=== PATIENT | female | born 1955 | race Caucasian/White ===

== ENCOUNTER 2018-09-08 08:04 | Emergency (ER) | payer MEDICAID, MEDICARE ==
[~2018-09-08] VITALS: Ht 162.6 cm; Wt 127.3 kg
[~2018-09-08 08:04] MED LIST: ALBU18HF2 INH; AMIT50TA14 PO; BROM2.5T22 PO; CYA500T PO; DICY10CA88 PO; DOCU100C40 PO; GABA-530 PO; MESA0.37 PO; SUMA6VIA SQ
[2018-09-08] MEDS ORDERED: albuterol 2.5 MG/3 ML nebule NEB ONE (08:30)
[2018-09-08 08:52] LABS: BASOPHILS # (AUTO) 0.1 X10'3 (0-0.2); BASOPHILS % (AUTO) 0.9 % (0-1); EOSINOPHILS # (AUTO) 0.2 X10'3 (0-0.9); HEMATOCRIT 37.6 % (35.0-45.0); HEMOGLOBIN 12.1 g/dl (12.0-16.0); LYMPHOCYTES # (AUTO) 1.1 X10'3 (1.1-4.8); MEAN CORPUSCULAR HEMOGLOBIN 28.6 PG (27.0-31.0); MEAN CORPUSCULAR HGB CONC 32.1 % (33.0-36.5); MEAN PLATELET VOLUME 8.2 FL (7.4-10.4); MONOCYTES # (AUTO) 0.9 X10'3 (0-0.9); MONOCYTES % (AUTO) 15.7 % (2-12); NEUTROPHILS # (AUTO) 3.7 X10'3 (1.8-7.7); NEUTROPHILS % (AUTO) 62.4 % (42-75); PLATELET COUNT 328 X10'3 (140-440); RED BLOOD COUNT 4.23 X10'6 (4.20-5.60); RED CELL DISTRIBUTION WIDTH 16.1 % (11.5-14.5); WHITE BLOOD COUNT 5.9 X10'3 (4.5-11.0)
[2018-09-08] MEDS ORDERED: predniSONE 20 mg tablet PO ONE (09:00)
[2018-09-08] MEDS ORDERED: levoFLOXACIN 750MG TABLET PO ONE (09:00)
[2018-09-08 09:08] LABS: PARTIAL THROMBOPLASTIN TIME 26 SECONDS (22-32); PROTHROMBIN TIME 10.1 SECONDS (9.0-12.0)
[2018-09-08] MEDS ORDERED: ALBU18HF2 INH (09:10)
[2018-09-08] MEDS ORDERED: PRED20TA PO (09:10)
[2018-09-08] MEDS ORDERED: LEVO750T21 PO (09:10)
[2018-09-08 09:19] LABS: ALANINE AMINOTRANSFERASE 20 U/L (12-78); ALBUMIN 3.5 G/DL (3.4-5.0); ALBUMIN/GLOBULIN RATIO 0.9 (1.1-1.5); ALKALINE PHOSPHATASE 123 IU/L (46-116); ANION GAP 12 (8-16); ASPARTATE AMINO TRANSFERASE 15 U/L (10-37); BILIRUBIN,TOTAL 0.3 MG/DL (0.1-1.0); BLOOD UREA NITROGEN 13 MG/DL (7-18); CALCIUM 9.4 MG/DL (8.5-10.1); CHLORIDE 104 MMOL/L (99-107); CREATININE 0.81 MG/DL (0.40-0.90); GLUCOSE 94 MG/DL (70-104); POTASSIUM 3.8 MMOL/L (3.5-5.1); SODIUM 140 MMOL/L (135-145); TOTAL CARBON DIOXIDE 24.2 MMOL/L (24-32); TOTAL PROTEIN 7.2 G/DL (6.4-8.2); eGFR 71 ML/MIN
[2018-09-08] MEDS ORDERED: ALBU2.5V12 NEB (09:22)
[2018-09-08] MEDS ORDERED: COMP1EAC87 INH (09:22)
[2018-09-08 09:31] VITALS: BP 145/99
== END 2018-09-08 09:36 | disposition home or self-care (01) ==
LOC: ER 08:04
DX: J20.9 Acute bronchitis, unspecified (principal); J45.909 Unspecified asthma, uncomplicated; M19.90 Unspecified osteoarthritis, unspecified site; Z90.89 Acquired absence of other organs; Z98.51 Tubal ligation status; Z88.2 Allergy status to sulfonamides; Z88.5 Allergy status to narcotic agent; Z88.8 Allergy status to other drugs, medicaments and biological substances; Z79.899 Other long term (current) drug therapy; Z87.891 Personal history of nicotine dependence
CPT/HCPCS: 36415; 71045; 80053; 83880; 84484; 85025; 85610; 85730; 93005; 94640; 94760; 99284; J7512

== ENCOUNTER 2020-05-04 17:47 | Emergency (ER) | payer MEDICARE, OTHER ==
[~2020-05-04] VITALS: Ht 162.6 cm; Wt 127.3 kg
[~2020-05-04 17:47] MED LIST changes: +ALBU2.5V12 NEB; -BROM2.5T22 PO; +BROM2.5T5 PO; +COMP1EAC87 INH; -CYA500T PO; +CYAN500T63 PO
[2020-05-04 18:58] LABS: BASOPHILS % (AUTO) 0.5 % (0-1); EOSINOPHILS % (AUTO) 0.1 % (0-6); HEMATOCRIT 41.4 % (35.0-45.0); HEMOGLOBIN 13.6 g/dl (12.0-16.0); LYMPHOCYTES # (AUTO) 1.1 X10'3 (1.1-4.8); LYMPHOCYTES % (AUTO) 12.3 % (21-51); MEAN CORPUSCULAR HEMOGLOBIN 30.2 PG (27.0-31.0); MEAN CORPUSCULAR VOLUME 91.4 FL (78-98); MEAN PLATELET VOLUME 8.6 FL (7.4-10.4); MONOCYTES % (AUTO) 10.4 % (2-12); NEUTROPHILS # (AUTO) 7.1 X10'3 (1.8-7.7); NEUTROPHILS % (AUTO) 76.7 % (42-75); PLATELET COUNT 305 X10'3 (140-440); RED BLOOD COUNT 4.52 X10'6 (4.20-5.60); RED CELL DISTRIBUTION WIDTH 15.1 % (11.5-14.5); WHITE BLOOD COUNT 9.3 X10'3 (4.5-11.0)
[2020-05-04 19:10] LABS: ALANINE AMINOTRANSFERASE 29 U/L (12-78); ALBUMIN 3.9 G/DL (3.4-5.0); ALKALINE PHOSPHATASE 103 IU/L (46-116); ANION GAP 14 (8-16); ASPARTATE AMINO TRANSFERASE 20 U/L (10-37); BILIRUBIN,TOTAL 0.4 MG/DL (0.1-1.0); BLOOD UREA NITROGEN 19 MG/DL (7-18); CALCIUM 9.9 MG/DL (8.5-10.1); CHLORIDE 102 MMOL/L (99-107); GLUCOSE 119 MG/DL (70-104); POTASSIUM 4.4 MMOL/L (3.5-5.1); SODIUM 136 MMOL/L (135-145); TOTAL CARBON DIOXIDE 20.2 MMOL/L (24-32); eGFR 56 ML/MIN
[2020-05-04 19:13] LABS: TROPONIN I < 0.04 NG/ML (0.0-0.05)
[2020-05-04] MEDS ORDERED: normal saline 1000ML IV soln IVB ONE (19:15)
[2020-05-04] MEDS ORDERED: ondansetron/PF 4mg/2ml inj IV ONE (19:35)
[2020-05-04 19:41] LABS: MAGNESIUM 2.1 MG/DL (1.5-2.4)
[2020-05-04 19:42] LABS: CLARITY,URINE CLEAR (Clear); COLOR,URINE YELLOW (Yellow); GLUCOSE, URINE NEGATIVE (Neg); KETONES,URINE >=80 mg/dl (Neg); LEUKOCYTE ESTERASE ,URINE NEGATIVE (Neg); NITRITES, URINE NEGATIVE (Neg); OCCULT BLOOD,URINE NEGATIVE (Neg); PROTEIN,URINE NEGATIVE (Neg); UROBILINOGEN,URINE 0.2 E.U/dL (0.2-1.0)
[2020-05-04 19:46] LABS: UA COLLECTION TYPE URINAL
[2020-05-04] MEDS ORDERED: methylPREDNISolone sod succ 125mg/2ml vial IV ONE (20:50)
[2020-05-04] MEDS ORDERED: LORazepam 0.5 MG tablet PO STA (20:52)
[2020-05-04] MEDS ORDERED: LORazepam 2 mg/ml vial IV ONE (21:40)
--- NOTE | 2020-05-04 21:52 | NUR ---
pt is resting quietly on gurney, still c/o nausea, dry heaving, medicated per Nile escalante at bedside to evaluate pt
[2020-05-04] MEDS ORDERED: iohexol 350MG/ML 100ml bottle IV ONE (22:09)
[2020-05-04] MEDS ORDERED: morphine 10mg/ml inj. IV ONE (22:20)
[2020-05-04] MEDS ORDERED: proCHLORperazine 10 MG/2 ml inj IV ONE (22:20)
[2020-05-05] MEDS ORDERED: LORA-268 PO (00:30)
[2020-05-05 00:58] VITALS: BP 128/72
== END 2020-05-05 01:00 | disposition home or self-care (01) ==
LOC: ER 17:48
DX: R53.1 Weakness (principal); R06.02 Shortness of breath; R53.83 Other fatigue; J45.909 Unspecified asthma, uncomplicated; Z98.51 Tubal ligation status; Z90.89 Acquired absence of other organs; Z98.890 Other specified postprocedural states; Z88.6 Allergy status to analgesic agent; Z88.2 Allergy status to sulfonamides; Z88.5 Allergy status to narcotic agent; Z88.8 Allergy status to other drugs, medicaments and biological substances; Z79.899 Other long term (current) drug therapy
CPT/HCPCS: 36415; 71045; 71275; 80053; 81003; 82948; 83735; 83880; 84100; 84443; 84484; 85025; 85379; 93005; 96361; 96374; 96375; 99285; J0780; J2060; J2270; J2405; J2930; J7030; Q9967

== ENCOUNTER 2021-09-14 13:58 | Emergency (ER) | payer MEDICARE, OTHER ==
[~2021-09-14] VITALS: Ht 167.6 cm; Wt 104.5 kg
[~2021-09-14 13:58] MED LIST changes: -CYAN500T63 PO; +CYAN500T71 PO; +LORA-268 PO
[2021-09-14] MEDS ORDERED: normal saline 1000ML IV soln IVB ONE (14:05)
[2021-09-14] MEDS ORDERED: ondansetron/PF 4mg/2ml inj IV ONE ×2 (14:05→16:50)
[2021-09-14] MEDS ORDERED: acetaminophen 1,000mg/100ml IV 100 ML IV ONE (14:10)
[2021-09-14 14:35] LABS: BASOPHILS # (AUTO) 0.1 X10'3 (0-0.2); BASOPHILS % (AUTO) 0.5 % (0-1); EOSINOPHILS % (AUTO) 0.1 % (0-6); HEMATOCRIT 36.7 % (35.0-45.0); HEMOGLOBIN 12.2 g/dl (12.0-16.0); LYMPHOCYTES # (AUTO) 1.3 X10'3 (1.1-4.8); LYMPHOCYTES % (AUTO) 6.7 % (21-51); MEAN CORPUSCULAR HGB CONC 33.2 g/dL (33.0-36.5); MEAN CORPUSCULAR VOLUME 90.5 FL (78-98); MEAN PLATELET VOLUME 8.5 FL (7.4-10.4); MONOCYTES % (AUTO) 10.4 % (2-12); NEUTROPHILS # (AUTO) 15.8 X10'3 (1.8-7.7); NEUTROPHILS % (AUTO) 82.3 % (42-75); PLATELET COUNT 476 X10'3 (140-440); RED BLOOD COUNT 4.05 X10'6 (4.20-5.60); RED CELL DISTRIBUTION WIDTH 14.3 % (11.5-14.5); WHITE BLOOD COUNT 19.2 X10'3 (4.5-11.0)
[2021-09-14 14:47] LABS: ALANINE AMINOTRANSFERASE 14 U/L (12-78); ALBUMIN/GLOBULIN RATIO 0.6 (1.1-1.5); ALKALINE PHOSPHATASE 208 IU/L (46-116); ANION GAP 18 (8-16); ASPARTATE AMINO TRANSFERASE 13 U/L (10-37); BILIRUBIN,TOTAL 0.9 MG/DL (0.1-1.0); BLOOD UREA NITROGEN 9 MG/DL (7-18); BUN/CREATININE RATIO 12.2 (6.6-38.0); CALCIUM 9.8 MG/DL (8.5-10.1); CHLORIDE 99 MMOL/L (99-107); CREATININE 0.74 MG/DL (0.40-0.90); GLUCOSE 110 MG/DL (70-104); POTASSIUM 3.6 MMOL/L (3.5-5.1); SODIUM 137 MMOL/L (135-145); TOTAL CARBON DIOXIDE 20.3 MMOL/L (24-32); eGFR 78 ML/MIN
[2021-09-14 14:52] LABS: LIPASE 81 U/L (73-393)
[2021-09-14] MEDS ORDERED: iohexol 300mg/ml 100ml inj. ONE (15:25)
--- NOTE | 2021-09-14 16:23 | NUR ---
bandar [phone]
[2021-09-14] MEDS ORDERED: ONDA4TAB6 PO (16:50)
[2021-09-14] MEDS ORDERED: PROC25SU31 RC (16:50)
[2021-09-14 17:04] LABS: CLARITY,URINE CLEAR (Clear); COLOR,URINE YELLOW (Yellow); GLUCOSE, URINE NEGATIVE (Neg); KETONES,URINE >=80 mg/dl (Neg); LEUKOCYTE ESTERASE ,URINE NEGATIVE (Neg); NITRITES, URINE NEGATIVE (Neg); OCCULT BLOOD,URINE NEGATIVE (Neg); PROTEIN,URINE NEGATIVE (Neg); UROBILINOGEN,URINE 0.2 E.U/dL (0.2-1.0)
[2021-09-14 17:10] LABS: UA COLLECTION TYPE CLN CATCH MIDSTREAM
[2021-09-14 18:34] VITALS: BP 140/78
== END 2021-09-14 18:36 | disposition home or self-care (01) ==
LOC: ER 13:58
DX: R10.13 Epigastric pain (principal); E27.9 Disorder of adrenal gland, unspecified; D72.829 Elevated white blood cell count, unspecified; J45.909 Unspecified asthma, uncomplicated; Z87.01 Personal history of pneumonia (recurrent); Z98.51 Tubal ligation status; Z98.890 Other specified postprocedural states; Z88.8 Allergy status to other drugs, medicaments and biological substances; Z88.5 Allergy status to narcotic agent; Z88.2 Allergy status to sulfonamides; Z79.899 Other long term (current) drug therapy
CPT/HCPCS: 36415; 74177; 80053; 81003; 83605; 83690; 84484; 85025; 87040; 96361; 96374; 96375; 96376; 99285; J0131; J2405; J7030; Q9967

== ENCOUNTER 2021-11-01 14:20 | Inpatient (IN) | payer MEDICARE, OTHER ==
[~2021-11-01] VITALS: Ht 167.6 cm; Wt 98.2 kg
[~2021-11-01 14:20] MED LIST changes: +ONDA4TAB6 PO
[2021-11-01] MEDS ORDERED: fentaNYL/PF 50MCG/1 ML 2ML syringe IV ONE (14:40)
[2021-11-01] MEDS ORDERED: normal saline 1000ML IV soln IVB ONE (14:40)
[2021-11-01] MEDS ORDERED: ondansetron/PF 4mg/2ml inj IV ONE (14:40)
[2021-11-01 15:23] LABS: BASOPHILS # (AUTO) 0.1 X10'3 (0-0.2); BASOPHILS % (AUTO) 0.6 % (0-1); EOSINOPHILS % (AUTO) 0.2 % (0-6); HEMATOCRIT 32.2 % (35.0-45.0); HEMOGLOBIN 10.6 g/dl (12.0-16.0); LYMPHOCYTES # (AUTO) 1.4 X10'3 (1.1-4.8); LYMPHOCYTES % (AUTO) 5.6 % (21-51); MEAN CORPUSCULAR HEMOGLOBIN 28.5 PG (27.0-31.0); MEAN CORPUSCULAR VOLUME 86.3 FL (78-98); MONOCYTES # (AUTO) 2.7 X10'3 (0-0.9); MONOCYTES % (AUTO) 10.9 % (2-12); NEUTROPHILS # (AUTO) 20.4 X10'3 (1.8-7.7); NEUTROPHILS % (AUTO) 82.7 % (42-75); PLATELET COUNT 488 X10'3 (140-440); RED BLOOD COUNT 3.73 X10'6 (4.20-5.60); RED CELL DISTRIBUTION WIDTH 15.4 % (11.5-14.5); WHITE BLOOD COUNT 24.7 X10'3 (4.5-11.0)
[2021-11-01 15:43] LABS: BANDS% (MANUAL) 0.5 % (0-10); NEUTROPHILS % (MANUAL) 87.5 % (42-75); PLATELET ESTIMATE INCREASED; TOTAL CELLS COUNTED 200
[2021-11-01 15:48] LABS: ALANINE AMINOTRANSFERASE 18 U/L (12-78); ALBUMIN 2.3 G/DL (3.4-5.0); ALBUMIN/GLOBULIN RATIO 0.4 (1.1-1.5); ALKALINE PHOSPHATASE 287 IU/L (46-116); ANION GAP 14 (8-16); ASPARTATE AMINO TRANSFERASE 19 U/L (10-37); BILIRUBIN,TOTAL 0.6 MG/DL (0.1-1.0); BLOOD UREA NITROGEN 23 MG/DL (7-18); BUN/CREATININE RATIO 26.4 (6.6-38.0); CALCIUM 10.2 MG/DL (8.5-10.1); CHLORIDE 99 MMOL/L (99-107); CREATININE 0.87 MG/DL (0.40-0.90); GLUCOSE 122 MG/DL (70-104); LIPASE 68 U/L (73-393); POTASSIUM 3.3 MMOL/L (3.5-5.1); SODIUM 135 MMOL/L (135-145); TOTAL CARBON DIOXIDE 22.3 MMOL/L (24-32); TOTAL PROTEIN 7.8 G/DL (6.4-8.2); eGFR 65 ML/MIN
[2021-11-01 16:46] LABS: CLARITY,URINE SLIGHTLY CLOUDY (Clear); COLOR,URINE YELLOW (Yellow); GLUCOSE, URINE NEGATIVE (Neg); KETONES,URINE 15 mg/dl (Neg); LEUKOCYTE ESTERASE ,URINE NEGATIVE (Neg); NITRITES, URINE NEGATIVE (Neg); OCCULT BLOOD,URINE NEGATIVE (Neg); PROTEIN,URINE NEGATIVE (Neg); UROBILINOGEN,URINE 0.2 E.U/dL (0.2-1.0)
[2021-11-01 16:49] LABS: UA COLLECTION TYPE CLN CATCH MIDSTREAM
[2021-11-01 16:52] LABS: BACTERIA,URINE 1+ /HPF (Neg); CELLULAR CAST 0-4 /LPF (NEGATIVE); MUCUS STRANDS MODERATE /LPF (Neg); RBC,URINE 0-2 /HPF (0-2); SQUAMOUS EPITHELIAL CELL,UR MODERATE /LPF (FEW); WBC,URINE 0-4 /HPF (0-4)
[2021-11-01 16:53] LABS: HYALINE CASTS 0-3 /LPF (NEGATIVE)
[2021-11-01] MEDS: diatr meglu/diatrizoate 30ml oral sol.-(3 dose) bottle PO SCH ×3 (17:30→19:05)
[2021-11-01] MEDS: fentaNYL/PF 50MCG/1 ML 2ML syringe IV PRN ×3 (18:54→23:44)
[2021-11-01] MEDS ORDERED: iohexol 300mg/ml 100ml inj. ONE (19:00)
--- NOTE | 2021-11-01 19:56 | NUR ---
PT UP TO BEDSIDE COMMODE WITH MIN. ASSIST
[2021-11-01] MEDS ORDERED: vancomycin/NS 1 GM ADD-VANTAGE 250 ML IV ONE (20:00)
[2021-11-01] MEDS ORDERED: piperacillin/tazo 3.375gm/50ml 50 ML IV ONE (20:00)
[2021-11-01] MEDS ORDERED: acetaminophen 325mg tablet PO PRN (20:50)
[2021-11-01] MEDS ORDERED: magnesium 4gm in 100ml NS 100 ML IV PRN (20:50)
[2021-11-01] MEDS ORDERED: mag hydrox/Alum hydrox/simeth 30ml oral suspension PO PRN (20:50)
[2021-11-01] MEDS ORDERED: diphenhydrAMINE 50 mg/ml inj IV PRN (20:50)
[2021-11-01] MEDS ORDERED: diphenhydrAMINE 25mg capsule PO PRN (20:50)
[2021-11-01] MEDS ORDERED: magnesium 2GM in 50ml NS 50 ML IV PRN (20:50)
[2021-11-01] MEDS ORDERED: bisacodyl 10mg suppository rectal RC PRN (20:50)
[2021-11-01] MEDS ORDERED: potassium Cl 20 mEq SR tablet PO PRN ×2 (20:50)
[2021-11-01] MEDS ORDERED: normal saline 1000ML IV soln IV ONE (20:50)
[2021-11-01] MEDS ORDERED: acetaminophen 650mg rectal suppository RC PRN (20:50)
[2021-11-01] MEDS ORDERED: potassium CL 10mEq/100ml bag 100 ML IV PRN (20:50)
[2021-11-01] MEDS ORDERED: magnesium hydroxide 30ml (MOM) UD suspension PO PRN (20:50)
[2021-11-01] MEDS ORDERED: magnesium Cl slow-release 64mg tablet PO PRN (20:50)
[2021-11-01] MEDS ORDERED: ondansetron 4mg rapidly disintigrating tab PO PRN (20:50)
[2021-11-01] MEDS ORDERED: temazepam 15mg capsule PO PRN (21:00)
[2021-11-01 22:06] LABS: APTT 29 SECONDS (22-32)
[2021-11-01 22:09] LABS: HEMOGLOBIN A1C 5.5 % (4.5-6.2)
[2021-11-01 22:16] LABS: MAGNESIUM 1.7 MG/DL (1.5-2.4); PHOSPHORUS 2.5 MG/DL (2.3-4.5); POTASSIUM 3.3 MMOL/L (3.5-5.1)
[2021-11-02] VITALS (9 sets, daily range): BP systolic 120–140; BP diastolic 64–95
[2021-11-02 01:43] LABS: BASOPHILS # (AUTO) 0.1 X10'3 (0-0.2); BASOPHILS % (AUTO) 0.6 % (0-1); EOSINOPHILS % (AUTO) 0.2 % (0-6); HEMATOCRIT 27.2 % (35.0-45.0); HEMOGLOBIN 8.9 g/dl (12.0-16.0); LYMPHOCYTES # (AUTO) 1.7 X10'3 (1.1-4.8); LYMPHOCYTES % (AUTO) 10.3 % (21-51); MEAN CORPUSCULAR HEMOGLOBIN 28.3 PG (27.0-31.0); MEAN CORPUSCULAR HGB CONC 32.7 g/dL (33.0-36.5); MEAN CORPUSCULAR VOLUME 86.6 FL (78-98); MEAN PLATELET VOLUME 9.2 FL (7.4-10.4); MONOCYTES # (AUTO) 2.4 X10'3 (0-0.9); MONOCYTES % (AUTO) 13.9 % (2-12); NEUTROPHILS # (AUTO) 12.8 X10'3 (1.8-7.7); PLATELET COUNT 396 X10'3 (140-440); RED BLOOD COUNT 3.14 X10'6 (4.20-5.60); RED CELL DISTRIBUTION WIDTH 15.1 % (11.5-14.5)
[2021-11-02 02:01] LABS: ALANINE AMINOTRANSFERASE 12 U/L (12-78); ALBUMIN 1.7 G/DL (3.4-5.0); ALBUMIN/GLOBULIN RATIO 0.4 (1.1-1.5); ALKALINE PHOSPHATASE 213 IU/L (46-116); ANION GAP 10 (8-16); ASPARTATE AMINO TRANSFERASE 12 U/L (10-37); BILIRUBIN,TOTAL 0.4 MG/DL (0.1-1.0); BLOOD UREA NITROGEN 16 MG/DL (7-18); BUN/CREATININE RATIO 25.8 (6.6-38.0); CALCIUM 8.7 MG/DL (8.5-10.1); CHLORIDE 105 MMOL/L (99-107); CHOL/HDL RATIO 3.6 (0.00-4.99); CHOLESTEROL 124 MG/DL (0-200); CREATININE 0.62 MG/DL (0.40-0.90); GLUCOSE 105 MG/DL (70-104); HDL CHOLESTEROL 34 MG/DL (35-60); LDL CHOLESTEROL 70 MG/DL (50-100); MAGNESIUM 1.6 MG/DL (1.5-2.4); POTASSIUM 3.3 MMOL/L (3.5-5.1); SODIUM 136 MMOL/L (135-145); TOTAL PROTEIN 5.8 G/DL (6.4-8.2); TRIGLYCERIDES 41 MG/DL (20-135); eGFR > 90 ML/MIN
[2021-11-02] MEDS: potassium Cl 20mEq in NS 1,000 ML IV SCH ×3 (02:24→13:59)
[2021-11-02 04:06] LABS: TOTAL CELLS COUNTED 100
[2021-11-02 04:08] LABS: PLATELET ESTIMATE NORMAL
[2021-11-02] MEDS ORDERED: SUCR1TAB PO (04:45)
[2021-11-02] MEDS ORDERED: AMIT-189 PO (04:45)
[2021-11-02] MEDS ORDERED: OMEP20CA16 PO (04:45)
[2021-11-02] MEDS ORDERED: ONDA-103 PO (04:45)
[2021-11-02] MEDS ORDERED: DENO60DI SQ (04:45)
[2021-11-02] MEDS ORDERED: FAMO20TA8 PO (04:45)
[2021-11-02] MEDS ORDERED: IBUP-1986 PO (04:45)
[2021-11-02] MEDS ORDERED: CHOL400T57 PO (05:11)
[2021-11-02] MEDS ORDERED: ZINC50TA67 PO (05:11)
[2021-11-02] MEDS ORDERED: CALC250T2 PO (05:11)
[2021-11-02] MEDS ORDERED: ELDE1CAP PO (05:11)
[2021-11-02] MEDS: fentaNYL/PF 50MCG/1 ML 2ML syringe IV PRN ×2 (05:59→22:22)
[2021-11-02] MEDS: piperacillin/tazo 3.375gm/50ml 50 ML IV SCH ×3 (06:09→22:33)
[2021-11-02] MEDS: ondansetron/PF 4mg/2ml inj IV PRN ×2 (06:13→20:25)
[2021-11-02] MEDS ORDERED: SUMAtriptan succ. 6 MG/0.5ml vial SQ PRN (06:35)
[2021-11-02] MEDS: docusate sod 100mg capsule PO SCH ×2 (08:00→20:00)
[2021-11-02] MEDS: MESALAMINE 0.375 GM PO SCH (08:00)
[2021-11-02] MEDS ORDERED: VANCOMYCIN 1GM/200ML IVPB 200 ML IV SCH (08:00)
[2021-11-02] MEDS ORDERED: non-formulary drug (Omeprazole 1 CAP) PO SCH (08:00)
--- NOTE | 2021-11-02 08:38 | NUR ---
PT TO [facility].
--- NOTE | 2021-11-02 08:44 | NUR ---
PARLODEL AND VANCOMYCIN NOT AVAILABLE IN THE [facility],CALLED RODY SPOKE TO JUANITA.
[2021-11-02] MEDS: pantoprazole 40MG/NS 100ML BAG 100 ML IV SCH (08:50)
--- NOTE | 2021-11-02 10:16 | NUR ---
ADMITTING DR SINGH FOR ANXIETY MED ORDERS WELL IMMODIUM.
[2021-11-02] MEDS ORDERED: FENTANYL CITRATE/PF 50 MCG/1 ML VIAL IV PRN (14:41)
[2021-11-02] MEDS ORDERED: fentaNYL/PF 50MCG/1 ML 2ML syringe ONE ×2 (15:08→15:34)
[2021-11-02] MEDS ORDERED: midazolam 1 mg/ML 2ml injection ONE ×2 (15:08→15:34)
--- NOTE | 2021-11-02 16:20 | NUR ---
Patient back from Angio lab with SHYANNE drain at left side , alert and orient.
[2021-11-02] MEDS ORDERED: HYDR-3965 PO (17:21)
[2021-11-02] MEDS: gabapentin 100mg capsule PO SCH ×2 (20:00→21:00)
[2021-11-02] MEDS: vancomycin/NS 1 GM ADD-VANTAGE 200 ML IV SCH (20:00)
[2021-11-02] MEDS: K and/or MAG REPLACEMENT MC SCH ×2 (20:00→21:00)
[2021-11-02] MEDS: amitriptyline 50mg tablet PO SCH (20:25)
--- NOTE | 2021-11-02 20:38 | NUR ---
pt complaining of pain and nausea. Zofran given. night time medications attempted unable to tolerate due to nausea and feelings of having to vomit. patient clear liquid diet. will continue to monitor.
[2021-11-03] MEDS: potassium Cl 20mEq in NS 1,000 ML IV SCH ×2 (00:47→12:38)
[2021-11-03 02:00] VITALS: BP 124/59
[2021-11-03] MEDS: ondansetron/PF 4mg/2ml inj IV PRN (05:43)
[2021-11-03] MEDS: fentaNYL/PF 50MCG/1 ML 2ML syringe IV PRN ×2 (05:43→15:42)
[2021-11-03 06:00] VITALS: BP 115/69
[2021-11-03] MEDS ORDERED: VANCOMYCIN LEVEL IV ONE (07:30)
[2021-11-03] MEDS: MESALAMINE 0.375 GM PO SCH (08:00)
[2021-11-03] MEDS: K and/or MAG REPLACEMENT MC SCH ×2 (08:00→20:00)
[2021-11-03 08:09] LABS: BASOPHILS % (AUTO) 0.5 % (0-1); EOSINOPHILS # (AUTO) 0.2 X10'3 (0-0.9); EOSINOPHILS % (AUTO) 2.5 % (0-6); HEMATOCRIT 27.9 % (35.0-45.0); HEMOGLOBIN 8.9 g/dl (12.0-16.0); LYMPHOCYTES # (AUTO) 1.5 X10'3 (1.1-4.8); LYMPHOCYTES % (AUTO) 18.9 % (21-51); MEAN CORPUSCULAR HEMOGLOBIN 28.1 PG (27.0-31.0); MEAN CORPUSCULAR HGB CONC 31.8 g/dL (33.0-36.5); MEAN CORPUSCULAR VOLUME 88.4 FL (78-98); MEAN PLATELET VOLUME 8.4 FL (7.4-10.4); MONOCYTES # (AUTO) 1.1 X10'3 (0-0.9); MONOCYTES % (AUTO) 13.8 % (2-12); NEUTROPHILS # (AUTO) 5.1 X10'3 (1.8-7.7); NEUTROPHILS % (AUTO) 64.3 % (42-75); PLATELET COUNT 406 X10'3 (140-440); RED BLOOD COUNT 3.16 X10'6 (4.20-5.60); RED CELL DISTRIBUTION WIDTH 15.4 % (11.5-14.5)
[2021-11-03 08:34] LABS: ALANINE AMINOTRANSFERASE 13 U/L (12-78); ALBUMIN 1.8 G/DL (3.4-5.0); ALBUMIN/GLOBULIN RATIO 0.5 (1.1-1.5); ALKALINE PHOSPHATASE 178 IU/L (46-116); ANION GAP 9 (8-16); ASPARTATE AMINO TRANSFERASE 11 U/L (10-37); BILIRUBIN,TOTAL 0.2 MG/DL (0.1-1.0); BLOOD UREA NITROGEN 9 MG/DL (7-18); BUN/CREATININE RATIO 20.9 (6.6-38.0); CALCIUM 8.8 MG/DL (8.5-10.1); CHLORIDE 111 MMOL/L (99-107); CREATININE 0.43 MG/DL (0.40-0.90); GLUCOSE 88 MG/DL (70-104); MAGNESIUM 1.7 MG/DL (1.5-2.4); POTASSIUM 4.4 MMOL/L (3.5-5.1); SODIUM 142 MMOL/L (135-145); TOTAL CARBON DIOXIDE 21.6 MMOL/L (24-32); TOTAL PROTEIN 5.3 G/DL (6.4-8.2); VANCOMYCIN,TROUGH 12.8 UG/ML (6.0-14.0); eGFR > 90 ML/MIN
[2021-11-03] MEDS: docusate sod 100mg capsule PO SCH ×2 (09:16→20:32)
[2021-11-03] MEDS: gabapentin 100mg capsule PO SCH ×2 (09:16→20:32)
[2021-11-03] MEDS: pantoprazole 40MG/NS 100ML BAG 100 ML IV SCH (09:17)
[2021-11-03] MEDS: vancomycin/NS 1 GM ADD-VANTAGE 200 ML IV SCH (10:06)
[2021-11-03 11:00] VITALS: BP 97/56
[2021-11-03] MEDS: piperacillin/tazo 3.375gm/50ml 50 ML IV SCH ×3 (12:39→21:50)
[2021-11-03 15:00] VITALS: BP 110/89
[2021-11-03 18:00] VITALS: BP 124/70
[2021-11-03] MEDS: amitriptyline 50mg tablet PO SCH (20:32)
[2021-11-03] MEDS: VANCOmycin 1250MG/NS 250ml Bag 250 ML IV SCH (21:43)
[2021-11-04] MEDS: potassium Cl 20mEq in NS 1,000 ML IV SCH ×3 (01:41→18:50)
[2021-11-04 02:00] VITALS: BP 102/59
[2021-11-04 06:00] VITALS: BP 122/61
[2021-11-04] MEDS: piperacillin/tazo 3.375gm/50ml 50 ML IV SCH ×3 (06:32→20:29)
[2021-11-04 07:01] LABS: BASOPHILS % (AUTO) 0.6 % (0-1); EOSINOPHILS # (AUTO) 0.3 X10'3 (0-0.9); EOSINOPHILS % (AUTO) 5.1 % (0-6); HEMATOCRIT 27.1 % (35.0-45.0); HEMOGLOBIN 8.5 g/dl (12.0-16.0); LYMPHOCYTES # (AUTO) 1.7 X10'3 (1.1-4.8); LYMPHOCYTES % (AUTO) 27.8 % (21-51); MEAN CORPUSCULAR HEMOGLOBIN 27.7 PG (27.0-31.0); MEAN CORPUSCULAR HGB CONC 31.4 g/dL (33.0-36.5); MEAN CORPUSCULAR VOLUME 88.1 FL (78-98); MEAN PLATELET VOLUME 8.6 FL (7.4-10.4); MONOCYTES # (AUTO) 0.8 X10'3 (0-0.9); MONOCYTES % (AUTO) 12.6 % (2-12); NEUTROPHILS # (AUTO) 3.3 X10'3 (1.8-7.7); NEUTROPHILS % (AUTO) 53.9 % (42-75); PLATELET COUNT 403 X10'3 (140-440); RED BLOOD COUNT 3.07 X10'6 (4.20-5.60); RED CELL DISTRIBUTION WIDTH 15.3 % (11.5-14.5); WHITE BLOOD COUNT 6.1 X10'3 (4.5-11.0)
[2021-11-04 07:17] LABS: ALANINE AMINOTRANSFERASE 12 U/L (12-78); ALBUMIN/GLOBULIN RATIO 0.6 (1.1-1.5); ALKALINE PHOSPHATASE 153 IU/L (46-116); ANION GAP 8 (8-16); ASPARTATE AMINO TRANSFERASE 8 U/L (10-37); BILIRUBIN,TOTAL 0.3 MG/DL (0.1-1.0); BLOOD UREA NITROGEN 6 MG/DL (7-18); BUN/CREATININE RATIO 9.7 (6.6-38.0); CHLORIDE 111 MMOL/L (99-107); CREATININE 0.62 MG/DL (0.40-0.90); GLUCOSE 83 MG/DL (70-104); MAGNESIUM 1.7 MG/DL (1.5-2.4); POTASSIUM 4.8 MMOL/L (3.5-5.1); SODIUM 143 MMOL/L (135-145); TOTAL CARBON DIOXIDE 23.8 MMOL/L (24-32); TOTAL PROTEIN 5.3 G/DL (6.4-8.2); eGFR > 90 ML/MIN
[2021-11-04] MEDS: MESALAMINE 0.375 GM PO SCH (08:00)
[2021-11-04] MEDS: pantoprazole 40MG/NS 100ML BAG 100 ML IV SCH (08:00)
[2021-11-04] MEDS: VANCOmycin 1250MG/NS 250ml Bag 250 ML IV SCH ×2 (08:00→20:18)
[2021-11-04] MEDS: docusate sod 100mg capsule PO SCH ×2 (08:00→20:17)
[2021-11-04] MEDS: K and/or MAG REPLACEMENT MC SCH ×2 (08:00→20:00)
[2021-11-04] MEDS: gabapentin 100mg capsule PO SCH ×2 (08:15→20:17)
--- NOTE | 2021-11-04 09:07 | NUR ---
Verbal order from Dr. Recinos to place patient on regular diet for primary nurse Soha Rodas RN Resource nurse.
[2021-11-04 11:00] VITALS: BP 120/72
[2021-11-04] MEDS: traMADol 50MG tablet PO PRN ×2 (12:45→17:35)
[2021-11-04 15:00] VITALS: BP 113/56
[2021-11-04 18:00] VITALS: BP 91/61
[2021-11-04] MEDS: amitriptyline 50mg tablet PO SCH (20:17)
[2021-11-04] MEDS: acetaminophen 325mg tablet PO PRN (20:23)
[2021-11-05] MEDS: potassium Cl 20mEq in NS 1,000 ML IV SCH ×2 (02:21→15:06)
[2021-11-05] MEDS: piperacillin/tazo 3.375gm/50ml 50 ML IV SCH ×3 (05:36→21:21)
[2021-11-05] MEDS: traMADol 50MG tablet PO PRN ×3 (05:41→18:17)
[2021-11-05 06:00] VITALS: BP 126/51
[2021-11-05] MEDS ORDERED: VANCOMYCIN LEVEL IV ONE (07:30)
[2021-11-05] MEDS: MESALAMINE 0.375 GM PO SCH (08:00)
[2021-11-05] MEDS: docusate sod 100mg capsule PO SCH ×2 (08:00→20:00)
[2021-11-05] MEDS: K and/or MAG REPLACEMENT MC SCH ×2 (08:00→20:00)
[2021-11-05] MEDS: gabapentin 100mg capsule PO SCH ×2 (08:00→20:43)
[2021-11-05 08:13] LABS: BASOPHILS % (AUTO) 0.7 % (0-1); EOSINOPHILS # (AUTO) 0.1 X10'3 (0-0.9); EOSINOPHILS % (AUTO) 2.5 % (0-6); HEMATOCRIT 27.5 % (35.0-45.0); HEMOGLOBIN 8.9 g/dl (12.0-16.0); LYMPHOCYTES # (AUTO) 0.5 X10'3 (1.1-4.8); LYMPHOCYTES % (AUTO) 11.5 % (21-51); MEAN CORPUSCULAR HEMOGLOBIN 28.4 PG (27.0-31.0); MEAN CORPUSCULAR HGB CONC 32.4 g/dL (33.0-36.5); MEAN CORPUSCULAR VOLUME 87.6 FL (78-98); MEAN PLATELET VOLUME 8.4 FL (7.4-10.4); MONOCYTES # (AUTO) 1.1 X10'3 (0-0.9); MONOCYTES % (AUTO) 25.4 % (2-12); NEUTROPHILS # (AUTO) 2.5 X10'3 (1.8-7.7); NEUTROPHILS % (AUTO) 59.9 % (42-75); PLATELET COUNT 365 X10'3 (140-440); RED BLOOD COUNT 3.14 X10'6 (4.20-5.60); RED CELL DISTRIBUTION WIDTH 15.5 % (11.5-14.5); WHITE BLOOD COUNT 4.2 X10'3 (4.5-11.0)
[2021-11-05 08:20] LABS: ALANINE AMINOTRANSFERASE 12 U/L (12-78); ALBUMIN 1.9 G/DL (3.4-5.0); ALBUMIN/GLOBULIN RATIO 0.6 (1.1-1.5); ALKALINE PHOSPHATASE 135 IU/L (46-116); ANION GAP 9 (8-16); ASPARTATE AMINO TRANSFERASE 8 U/L (10-37); BILIRUBIN,TOTAL 0.2 MG/DL (0.1-1.0); BLOOD UREA NITROGEN 5 MG/DL (7-18); BUN/CREATININE RATIO 6.4 (6.6-38.0); CALCIUM 8.8 MG/DL (8.5-10.1); CHLORIDE 109 MMOL/L (99-107); CREATININE 0.78 MG/DL (0.40-0.90); GLUCOSE 90 MG/DL (70-104); MAGNESIUM 1.4 MG/DL (1.5-2.4); POTASSIUM 4.6 MMOL/L (3.5-5.1); SODIUM 139 MMOL/L (135-145); TOTAL CARBON DIOXIDE 21.5 MMOL/L (24-32); TOTAL PROTEIN 5.3 G/DL (6.4-8.2); eGFR 74 ML/MIN
[2021-11-05 08:49] LABS: VANCOMYCIN,TROUGH 24.5 UG/ML (6.0-14.0)
[2021-11-05] MEDS: pantoprazole 40MG/NS 100ML BAG 100 ML IV SCH (09:19)
[2021-11-05 11:00] VITALS: BP 125/69
[2021-11-05 11:17] LABS: NUCLEATED RED BLOOD CELLS 1 /100WBC (0-0); TOTAL CELLS COUNTED 100
[2021-11-05 11:18] LABS: HYPOCHROMASIA 1+; LARGE PLATELETS FEW; PLATELET ESTIMATE NORMAL
[2021-11-05 15:00] VITALS: BP 115/63
[2021-11-05] MEDS: vancomycin inj. 750 MG in normal saline 250ml IV soln 250 ML IV SCH (15:10)
[2021-11-05] MEDS ORDERED: magnesium Cl slow-release 64mg tablet PO PRN (16:05)
[2021-11-05 18:00] VITALS: BP 140/69
[2021-11-05] MEDS: acetaminophen 325mg tablet PO PRN (20:42)
[2021-11-05] MEDS: amitriptyline 50mg tablet PO SCH (20:43)
[2021-11-05 22:00] VITALS: BP 99/54
[2021-11-06] MEDS: potassium Cl 20mEq in NS 1,000 ML IV SCH ×3 (01:21→20:16)
[2021-11-06 02:00] VITALS: BP 99/51
[2021-11-06] MEDS: vancomycin inj. 750 MG in normal saline 250ml IV soln 250 ML IV SCH ×2 (03:46→15:37)
[2021-11-06 06:00] VITALS: BP 145/80
[2021-11-06] MEDS: piperacillin/tazo 3.375gm/50ml 50 ML IV SCH ×3 (06:02→23:23)
[2021-11-06] MEDS: gabapentin 100mg capsule PO SCH ×2 (07:16→20:09)
[2021-11-06] MEDS: traMADol 50MG tablet PO PRN ×4 (07:17→22:49)
[2021-11-06] MEDS: pantoprazole 40MG/NS 100ML BAG 100 ML IV SCH (07:18)
[2021-11-06] MEDS: MESALAMINE 0.375 GM PO SCH (07:22)
[2021-11-06] MEDS: docusate sod 100mg capsule PO SCH ×3 (07:22→20:09)
[2021-11-06] MEDS: K and/or MAG REPLACEMENT MC SCH ×2 (08:00→16:44)
[2021-11-06 11:00] VITALS: BP 102/40
[2021-11-06 12:37] LABS: BASOPHILS % (AUTO) 0.9 % (0-1); EOSINOPHILS # (AUTO) 0.1 X10'3 (0-0.9); HEMOGLOBIN 9.8 g/dl (12.0-16.0); MEAN CORPUSCULAR VOLUME 88.6 FL (78-98); MEAN PLATELET VOLUME 8.5 FL (7.4-10.4); MONOCYTES # (AUTO) 1.2 X10'3 (0-0.9); NEUTROPHILS # (AUTO) 1.6 X10'3 (1.8-7.7)
[2021-11-06 12:39] LABS: EOSINOPHILS % (AUTO) 2.5 % (0-6); HEMATOCRIT 30.6 % (35.0-45.0); LYMPHOCYTES # (AUTO) 1.2 X10'3 (1.1-4.8); LYMPHOCYTES % (AUTO) 29.1 % (21-51); MEAN CORPUSCULAR HEMOGLOBIN 28.4 PG (27.0-31.0); MONOCYTES % (AUTO) 29.7 % (2-12); NEUTROPHILS % (AUTO) 37.8 % (42-75); PLATELET COUNT 362 X10'3 (140-440); RED BLOOD COUNT 3.45 X10'6 (4.20-5.60); RED CELL DISTRIBUTION WIDTH 15.6 % (11.5-14.5); WHITE BLOOD COUNT 4.1 X10'3 (4.5-11.0)
[2021-11-06 12:47] LABS: ALANINE AMINOTRANSFERASE 10 U/L (12-78); ALBUMIN 2.2 G/DL (3.4-5.0); ALBUMIN/GLOBULIN RATIO 0.6 (1.1-1.5); ALKALINE PHOSPHATASE 141 IU/L (46-116); ANION GAP 7 (8-16); ASPARTATE AMINO TRANSFERASE 16 U/L (10-37); BILIRUBIN,TOTAL 0.2 MG/DL (0.1-1.0); BLOOD UREA NITROGEN 4 MG/DL (7-18); BUN/CREATININE RATIO 4.5 (6.6-38.0); CALCIUM 8.9 MG/DL (8.5-10.1); CHLORIDE 107 MMOL/L (99-107); CREATININE 0.89 MG/DL (0.40-0.90); GLUCOSE 86 MG/DL (70-104); POTASSIUM 4.2 MMOL/L (3.5-5.1); SODIUM 137 MMOL/L (135-145); TOTAL CARBON DIOXIDE 22.7 MMOL/L (24-32); TOTAL PROTEIN 5.7 G/DL (6.4-8.2); eGFR 63 ML/MIN
[2021-11-06 13:13] LABS: ANISOCYTOSIS 1+; PLATELET ESTIMATE NORMAL; TOTAL CELLS COUNTED 100
--- NOTE | 2021-11-06 15:09 | NUR ---
Initial: Pt admit for sepsis and intra-abdominal abscess s/p lap band that was removed 2 months ago. Pt initially on a clear liquid diet which was advanced to regular 11/04 and pt with 25-50% PO intake since diet advancement though up to 75% at breakfast this morning. Pt seen at bedside, reports poor PO intake r/t not liking the food. Food preferences were obtained and d/w dietary, see below. RD discussed the importance of protein given current admit. Pt requests cottage cheese BIDLD, d/w dietary. Pt denies any specific dietary needs r/t recent lap band. Pt denies food allergies or difficulty chewing/swallowing. RD contact information provided and pt encouraged to reach out for further food preferences. LB 11/05. Will continue to follow. Recommendations: 1) Continue regular diet 2) [place] food preferences: decaf tea with extra sugar, regular butter TID; crackers, cottage cheese, salad with extra dressing BIDLD; No beef, bread, margarine, ice tea, or coffee 3) Routine bowel care 4) Scaled weight this admit; weekly scaled weights thereafter Addendum: 11/06/21 at [address] Amended: Links added.
[2021-11-06 16:00] VITALS: BP 131/70
[2021-11-06 18:00] VITALS: BP 127/63
[2021-11-06] MEDS: amitriptyline 50mg tablet PO SCH (20:09)
[2021-11-06 22:00] VITALS: BP 113/62
[2021-11-07 02:00] VITALS: BP 109/55
[2021-11-07] MEDS: vancomycin inj. 750 MG in normal saline 250ml IV soln 250 ML IV SCH (04:31)
[2021-11-07 06:00] VITALS: BP 116/56
[2021-11-07] MEDS: piperacillin/tazo 3.375gm/50ml 50 ML IV SCH (06:40)
[2021-11-07] MEDS: docusate sod 100mg capsule PO SCH (08:00)
[2021-11-07] MEDS: MESALAMINE 0.375 GM PO SCH (08:00)
[2021-11-07] MEDS: traMADol 50MG tablet PO PRN (08:23)
[2021-11-07] MEDS: gabapentin 100mg capsule PO SCH (08:23)
[2021-11-07] MEDS: pantoprazole 40MG/NS 100ML BAG 100 ML IV SCH (08:46)
[2021-11-07 11:00] VITALS: BP 110/73
[2021-11-07] MEDS ORDERED: LEVO750T46 PO (11:13)
[2021-11-07] MEDS ORDERED: PANT40TA54 PO (11:13)
[2021-11-07] MEDS ORDERED: METR-159 PO (11:13)
[2021-11-07] MEDS ORDERED: VANCOMYCIN LEVEL IV ONE (15:30)
== END 2021-11-07 14:41 | disposition home health service (06) | DRG 871 ==
LOC: ER 14:21 → ED HOLD 20:57 → PCU 3S 11-02 12:13
PROVIDERS: ADMIT Family Medicine; ATTEND Family Medicine
PROC: BW211ZZ Computerized Tomography (CT Scan) of Abdomen and Pelvis using Low Osmolar Contrast (ICD-10-PCS; 2021-11-01)
PROC: 0W9G30Z Drainage of Peritoneal Cavity with Drainage Device, Percutaneous Approach (ICD-10-PCS; principal; 2021-11-02)
DX: A41.9 Sepsis, unspecified organism (principal); K65.1 Peritoneal abscess; Z98.84 Bariatric surgery status; E87.6 Hypokalemia; E86.0 Dehydration; D64.9 Anemia, unspecified; E88.09 Other disorders of plasma-protein metabolism, not elsewhere classified; I10 Essential (primary) hypertension; J45.909 Unspecified asthma, uncomplicated; G43.909 Migraine, unspecified, not intractable, without status migrainosus; M19.90 Unspecified osteoarthritis, unspecified site; R82.4 Acetonuria; G62.9 Polyneuropathy, unspecified; Z20.822 Contact with and (suspected) exposure to COVID-19; Z87.891 Personal history of nicotine dependence; Z91.14 Patient's other noncompliance with medication regimen; Z88.2 Allergy status to sulfonamides; Z88.6 Allergy status to analgesic agent; Z88.8 Allergy status to other drugs, medicaments and biological substances; Z88.5 Allergy status to narcotic agent; Z98.51 Tubal ligation status
CPT/HCPCS: 36000; 36415; 49406; 71045; 74177; 76937; 80053; 80061; 80202; 81001; 83036; 83605; 83690; 83735; 83880; 84100; 84132; 84145; 85007; 85025; 85610; 85730; 87040; 87070; 87635; 93005; 96361; 96374; 96375; 99152; 99153; 99285; C9113; C9803; G0378; J2250; J2405; J2543; J3010; J3370; J3480; J7030; J7050; Q9963; Q9967

== ENCOUNTER 2024-05-12 23:57 | Emergency (ER) | payer MEDICARE, BC ==
[~2024-05-12] VITALS: Ht 165.1 cm; Wt 123.3 kg
[~2024-05-12 23:57] MED LIST changes: -AMIT50TA14 PO; +AMIT50TA15 PO; +CALC250T2 PO; +CHOL400T57 PO; -COMP1EAC87 INH; +DENO60DI SQ; -DICY10CA88 PO; -DOCU100C40 PO; +ELDE1CAP PO; +HYDR-3965 PO; -LORA-268 PO; +PANT40TA54 PO
[2024-05-13] MEDS: HYDROmorphone 1 mg/ml syringe IM ONE (01:00)
[2024-05-13] MEDS: ondansetron 4mg rapidly disintigrating tab PO ONE (01:09)
[2024-05-13] MEDS: HYDROcodone/acetaminophen 5mg/325mg tablet PO ONE (01:10)
[2024-05-13] MEDS ORDERED: ONDA-243 PO (02:08)
[2024-05-13 02:30] VITALS: BP 148/82; PULSE 68; RESP 18; TEMP 98.6; O2SAT 97
== END 2024-05-13 02:45 | disposition home or self-care (01) ==
LOC: ER 23:58
DX: S52.592A Other fractures of lower end of left radius, initial encounter for closed fracture (principal); J45.909 Unspecified asthma, uncomplicated; Z88.8 Allergy status to other drugs, medicaments and biological substances; Z88.2 Allergy status to sulfonamides; Z79.899 Other long term (current) drug therapy; Z98.890 Other specified postprocedural states; Z98.51 Tubal ligation status; W01.0XXA Fall on same level from slipping, tripping and stumbling without subsequent striking against object, initial encounter; Y93.89 Activity, other specified; Y92.89 Other specified places as the place of occurrence of the external cause; Y99.8 Other external cause status
CPT/HCPCS: 29125; 73110; 99283; A4565; A6449